=== PATIENT | male | born 1995 | race Caucasian/White ===

== ENCOUNTER 2024-09-28 10:22 | Outpatient (REF) | payer OTHER, SELFPAY ==
[2024-09-28 14:52] LABS: HCT 51.2 % (40.0-50.0); HGB 17.4 g/dL (13.5-17.5); MCH 30.2 pg (27.0-33.0); MCV 89 fL (80-95); Platelet Count 261 10^3/uL (130-400); RBC 5.76 10^6/uL (4.36-5.78); RDW 12.6 % (11.8-14.1); RDW-SD 40.9 fL
[2024-09-28 15:44] LABS: ALT 109 U/L (16-63); AST 45 U/L (15-37); Albumin 4.7 g/dL (3.4-5.0); Alkaline Phosphatase 116 U/L (46-116); Anion Gap 8.5 mmol/L (3-11); BUN 16 mg/dL (7-18); Bilirubin, Total 1.1 mg/dL (0.2-1.0); CO2 30.5 mmol/L (21.0-32.0); Calcium 9.8 mg/dL (8.5-10.1); Calculated LDL 94 mg/dL (<100); Chloride 105 mmol/L (98-107); Cholesterol 178 mg/dL (<200); Estimated GFR 105.14 (mL/min/1.73m2); Glucose 83 mg/dL (74-106); HDL Cholesterol 65 mg/dL (>or=40); Potassium 4.7 mmol/L (3.5-5.1); Sodium 144 mmol/L (136-145); Total Protein 8.3 g/dL (6.4-8.2); Triglyceride 99 mg/dL (<150)
== END 2024-09-28 10:23 | disposition home or self-care (01) ==
LOC: NCHCN 10:22
PROVIDERS: PCP Physician Assistant; Visit Provider Physician Assistant
DX: Z13.220 Encounter for screening for lipoid disorders (principal); Z13.6 Encounter for screening for cardiovascular disorders
CPT/HCPCS: 80053; 80061; 85027

== ENCOUNTER 2025-01-06 18:53 | Outpatient (REF) | payer OTHER, SELFPAY ==
[2025-01-06 23:04] LABS: ALT 89 U/L (16-63); AST 45 U/L (15-37); Albumin 4.7 g/dL (3.4-5.0); Alkaline Phosphatase 75 U/L (46-116); Anion Gap 7.9 mmol/L (3-11); BUN 15 mg/dL (7-18); Bilirubin, Total 2.1 mg/dL (0.2-1.0); CO2 30.1 mmol/L (21.0-32.0); Calcium 9.8 mg/dL (8.5-10.1); Chloride 103 mmol/L (98-107); Estimated GFR 104.48 (mL/min/1.73m2); Glucose 86 mg/dL (74-106); Potassium 4.2 mmol/L (3.5-5.1); Sodium 141 mmol/L (136-145); Total Protein 7.9 g/dL (6.4-8.2)
== END 2025-01-06 18:54 | disposition home or self-care (01) ==
LOC: NCHCN 18:53
PROVIDERS: PCP Physician Assistant; Visit Provider Physician Assistant
DX: R74.01 Elevation of levels of liver transaminase levels (principal)
CPT/HCPCS: 80053